=== PATIENT | female | born 1940 | race Caucasian/White ===

== ENCOUNTER → 2016-10-26 | Outpatient (CLI) | payer MEDICARE, BC | END | disposition home or self-care (01) | LOC: GMAB 10:43 | PROVIDERS: ATTEND Family Medicine | DX: E55.9 Vitamin D deficiency, unspecified (principal) ==

== ENCOUNTER → 2017-06-07 | Outpatient (CLI) | payer MEDICARE, BC | LOC: GMAB 10:54 | PROVIDERS: ATTEND Family Medicine | DX: I10 Essential (primary) hypertension (principal) ==

== ENCOUNTER → 2018-04-17 | Outpatient (CLI) | payer MEDICARE, BC ==
--- NOTE | 2018-04-17 16:07 | US ---
US THYROID CLINICAL STATEMENT: NONTOXIC SINGEL THYROID. COMPARISON: None FINDINGS: Size right thyroid lobe: 3.9 x 2.4 x 1.8 cm Size left thyroid lobe: 5.4 x 2.0 x 1.3 cm Size isthmus: 0.2 cm Estimated total number of nodules greater than or equal to 1 cm: 4. Heterogeneous bilateral lobes. Nodule 1: Size: 2.7 x 2.3 x 1.9 cm Location: Right Mid Composition: solid or almost completely solid: 2 points Echogenicity: hypoechoic: 2 points Shape: taller than wide: 3 points Margins: smooth: 0 points Echogenic foci: none: 0 points ACR Total Points: >/= 7; ACR TI-RADS risk category: TR5 - highly suspicious nodule. Nodule 2: Size: 1.1 x 0.9 x 0.6 cm Location: Left Mid Composition: solid or almost completely solid: 2 points Echogenicity: hypoechoic: 2 points Shape: wider than tall: 0 points Margins: smooth: 0 points Echogenic foci: none: 0 points ACR Total Points: 4; ACR TI-RADS risk category: TR4 - moderately suspicious nodule. Nodule 3: Size: 1.0 x 1.0 x 0.9 cm Location: Left Mid Composition: mixed cystic and solid: 1 point Echogenicity: hypoechoic: 2 points Shape: taller than wide: 3 points Margins: smooth: 0 points Echogenic foci: none: 0 points ACR Total Points: 6; ACR TI-RADS risk category: TR4 - moderately suspicious nodule. Nodule 4: Size: 2.2 x 1.6 x 1.2 cm Location: Left Lower Composition: solid or almost completely solid: 2 points Echogenicity: hypoechoic: 2 points Shape: wider than tall: 0 points Margins: smooth: 0 points Echogenic foci: none: 0 points ACR Total Points: 4; ACR TI-RADS risk category: TR4 - moderately suspicious nodule. Additional Nodule: Size: 0.8 x 0.7 x 0.4 cm Location: Right Mid Composition: solid or almost completely solid: 2 points Echogenicity: hypoechoic: 2 points Shape: wider than tall: 0 points Margins: smooth: 0 points Echogenic foci: none: 0 points ACR Total Points: 4; ACR TI-RADS risk category: TR4 - moderately suspicious nodule. Heterogeneous appearance of the soft tissue around the thyroid gland bilaterally. No dominant solid mass or distinct cyst. No parenchymal edema or large calcifications. No overlying skin changes. No abnormal vascularity. IMPRESSION: 1. Nodule 1: ACR TI-RADS 2017 Category TR5. Recommend: Ultrasound-guided fine needle aspiration. Recommendations based upon [employer] Best [employer] recommendations and ACR TI-RADS 2017 guidelines. Please see below*. 2. Nodule 2: ACR TI-RADS 2017 Category TR4. Recommend: Follow-up ultrasound in 1 year. 3. Nodule 3: ACR TI-RADS 2017 Category TR4. Recommend: Follow-up ultrasound in 1 year. 4. Nodule 4: ACR TI-RADS 2017 Category TR4. Recommend: Ultrasound-guided fine needle aspiration Additional nodule right mid lobe requires no further follow-up. Soft tissue around the thyroid gland was unremarkable. *ACR TI-RADS 2017 Recommendations: TR1: No FNA or follow up TR2: No FNA or follow up TR3: FNA if >/= 2.5 cm, follow up if 1.5 - 2.4 cm in 1, 3, and 5 years TR4: FNA if >/= 1.5 cm, follow up if 1.0 - 1.4 cm in 1, 2, 3, and 5 years TR5: FNA if >/= 1.0 cm, follow up if 0.5 - 0.9 cm every year for 5 years ACR TI-RADS recommends that no more than two nodules with the highest ACR TI-RADS total point should be biopsied and no more than four nodules should be followed. Electronically signed by: Scottie Brooks MD 04/17/2018 4:06 PM [facility]
== END ==
LOC: US 14:34
PROVIDERS: ATTEND Family Medicine
DX: E04.1 Nontoxic single thyroid nodule (principal)

== ENCOUNTER → 2018-10-17 | Outpatient (CLI) | payer MEDICARE, BC ==
--- NOTE | 2018-10-17 08:21 | RAD ---
EXAM DESCRIPTION: Shoulder,Right four x-ray views CLINICAL HISTORY: M25.511 COMPARISON: None Available. TECHNIQUE: Four views of the right shoulder. FINDINGS: Severe degenerative spurring of the anteroinferior acetabular margin and superior humeral head. Degenerative narrowing of the AC joint and glenohumeral joint. Marked sclerosis of the glenoid surface as well as the medial humeral head. Large osteophyte at the medial humeral head neck junction. Normal alignment of humeral head and glenoid surface on transaxillary view and transscapular Y view. 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 Electronically signed by: Mikael Greene MD 10/17/2018 8:19 AM CDT
== END ==
LOC: RAD 07:45
PROVIDERS: ATTEND Orthopaedic Surgery
DX: M19.011 Primary osteoarthritis, right shoulder (principal)

== ENCOUNTER → 2018-10-22 | Outpatient (CLI) | payer MEDICARE, BC | LOC: GMAE 10:24 | PROVIDERS: ATTEND Family Medicine | DX: E55.9 Vitamin D deficiency, unspecified (principal) ==

== ENCOUNTER → 2019-10-20 | Outpatient (CLI) | payer MEDICARE, BC | LOC: GMAE 10:28 | PROVIDERS: ATTEND Family Medicine | DX: I10 Essential (primary) hypertension (principal) ==

== ENCOUNTER 2019-11-15 11:33 | Emergency (ER) | payer MEDICARE, BC ==
[2019-11-15] MEDS ORDERED: SODIUM CHLORIDE 0.9% 1000ML 1,000 ML IVS PRN (11:50)
--- NOTE | 2019-11-15 12:58 | ED.PDOC ---
History of Present Illness - General Chief Complaint: General Time Seen by Provider: 11/15/19 11:41 - History of Present Illness Initial Comments: 78 yo F comes in with black tarry stools for one day. states she has had this in the past, but this time it won't stop. Complains of shortness of breath and dizziness. no syncope, no abdominal pain or chest pain. Has never had EGD. Does not drink alcohol. Takes a lot of aspirin for her arthritis. Allergies/Adverse Reactions: Allergies NO KNOWN ALLERGY Allergy (Unverified 11/08/12 18:40) Home Medications: Ambulatory Orders Amitriptyline HCl 10 mg PO HS #0 11/10/12 Fluoxetine HCl [Prozac] 20 mg PO BID #0 11/10/12 LORazepam [Ativan] 0.5 mg PO BID #0 11/10/12 Anastrozole [Arimidex] 1 mg PO BEDTIME 11/15/19 Gabapentin [Neurontin] 300 mg PO HS 11/15/19 Lisinopril 20 mg PO DAILY 11/15/19 Review of Systems - Review of Systems Constitutional: States: malaise, weakness. Denies: chills, diaphoresis, fever EENTM: Denies: blurred vision, tearing Respiratory: States: short of breath. Denies: cough, orthopnea, stridor, wheezing Cardiology: Denies: chest pain, edema, palpitations, syncope Gastrointestinal/Abdominal: States: other - per hpi. Denies: abdominal pain, constipation, diarrhea, nausea, vomiting Genitourinary: Denies: discharge, dysuria, frequency, hematuria Musculoskeletal: Denies: back pain, joint pain, joint swelling, muscle pain, muscle stiffness, neck pain Skin: Denies: change in color, change in hair/nails, dryness, rash Neurological: Denies: anxiety, depressed, headache, numbness, paresthesia, pre- existing deficit, seizure Endocrine: Denies: intolerance to cold, intolerance to heat, increased thirst, increased urine, unexplained weight gain, unexplained weight loss Hematologic/Lymphatic: Denies: anemia, blood clots, easy bleeding Past Medical History (General) - Patient Medical History Hx Seizures: No Hx Stroke: No Hx Dementia: No Hx Asthma: No Hx of COPD: No Hx Cardiac Disorders: No Hx Congestive Heart Failure: No Hx Pacemaker: No Hx Hypertension: No Hx Thyroid Disease: No Hx Diabetes: No Hx Gastroesophageal Reflux: No Hx Renal Disease: No Hx Cancer: Yes Hx of HIV: No Hx Hepatitis C: No Hx MRSA: No - Social History Hx Tobacco Use: No Hx Alcohol Use: No Hx Substance Use: No Hx Substance Use Treatment: No Hx Depression: No Hx Physical Abuse: No Hx Emotional Abuse: No Family Medical History - Family History Mother Family History: No Known Physical Exam - Physical Exam General Appearance: Alert, Comfortable, No apparent distress Ears, Nose, Throat: hearing grossly normal, normal ENT inspection, normal pharynx Neck: non-tender, full range of motion, supple, normal inspection Respiratory: chest non-tender, lungs clear, normal breath sounds, no respiratory distress, no accessory muscle use Cardiovascular/Chest: normal peripheral pulses, regular rate, rhythm, no edema, no gallop, no JVD, no murmur Peripheral Pulses: radial,right: 2+, radial,left: 2+, dorsalis pedis,right: 2+, dorsalis pedis,left: 2+ Gastrointestinal/Abdominal: normal bowel sounds, non tender, soft, no organomegaly, no pulsatile mass Rectal Exam: normal rectal tone, black stool Back Exam: normal inspection, no CVA tenderness, no vertebral tenderness Extremity: normal range of motion, non-tender, normal inspection, no pedal edema, no calf tenderness Neurologic: bioprocess engineer II-XII nml as tested, no motor/sensory deficits, alert, normal mood/affect, oriented x 3 Skin Exam: warm/dry, pallor Lymphatic: no adenopathy Progress - Progress Progress: 11/15/19 patient given 1 L NS bolus, melena like stool noted at rectal volt. HR 113. EKG shows NSR HR 94,improved with fluids. Non specific st changes. John-bl [place] bleeding score 10. Will call hospitalist to discuss admission. 11/15/19 11:50 Sodium Chloride 0.9% 1000ML [Ns 1000 ml] 1,000 ml IVS STAT 11/15/19 12:22 TYPE AND SCREEN Stat 11/15/19 12:30 EKG STAT Laboratory Results WBC 7.1 K/mm3 (4.8-10.8) 11/15/19 12:22 RBC 3.00 M/mm3 (4.20-5.40) L 11/15/19 12:22 Hgb 9.3 gm/dL (12.0-16.0) L 11/15/19 12:22 Hct 27.7 % (36.0-47.0) L 11/15/19 12: MCV 92.4 fl (81.0-99.0) 11/15/19 12: MCH 31.1 pg (27.0-31.0) H 11/15/19 12: MCHC 33.7 g/dL (33.0-37.0) 11/15/19 12: RDW 13.2 % (11.5-14.5) 11/15/19 12: Plt Count 256 K/mm3 (130-400) 11/15/19 12: MPV 7.7 fl (7.40-10.4) 11/15/19 12: Absolute Neuts (auto) 5.30 K/uL (1.8-6.8) 11/15/19 12: Absolute Lymphs (auto) 1.20 K/uL (1.0-3.4) 11/15/19 12: Absolute Monos (auto) 0.50 K/uL (0.2-0.8) 11/15/19 12: Absolute Eos (auto) 0.10 K/uL (0.0-0.4) 11/15/19 12: Absolute Basos (auto) 0.10 K/uL (0.0-0.1) 11/15/19 12:22 Neutrophils % 74.8 % (42.0-78.0) 11/15/19 12: Lymphocytes % 16.3 % (20.0-50.0) L 11/15/19 12:22 Monocytes % 6.5 % (2.0-9.0) 11/15/19 12: Eosinophils % 1.1 % (1.0-5.0) 11/15/19 12: Basophils % 1.3 % (0.0-2.0) 11/15/19 12: PT 10.2 SECONDS (9.0-10.9) 11/15/19 12:22 INR 1.03 (0.9-1.15) 11/15/19 12:22 PTT (SP) 19.3 SECONDS (21.8-31.6) L 11/15/19 12:22 Sodium 138 mmol/L (135-145) 11/15/19 12:22 Potassium 4.0 mmol/L (3.6-5.0) 11/15/19 12:22 Chloride 108 mmol/L (101-111) 11/15/19 12:22 Carbon Dioxide 22 mmol/L (21-31) 11/15/19 12:22 Anion Gap 12.0 (12-18) 11/15/19 12:22 BUN 21 mg/dL (7-18) H 11/15/19 12:22 Creatinine 0.83 mg/dL (0.6-1.3) 11/15/19 12:22 BUN/Creatinine Ratio 25.3 (10-20) H 11/15/19 12:22 Random Glucose 116 mg/dL (70-105) H 11/15/19 12:22 Serum Osmolality 279.6 mOsm/L (275-295) 11/15/19 12:22 Calcium 9.0 mg/dL (8.4-10.2) 11/15/19 12:22 Total Bilirubin 1.2 mg/dL (0.2-1.0) H 11/15/19 12:22 AST 21 IU/L (10-42) 11/15/19 12:22 ALT 10 IU/L (10-60) 11/15/19 12:22 Alkaline Phosphatase 63 IU/L (42-121) 11/15/19 12:22 Troponin I < 0.02 ng/mL (0.01-0.05) 11/15/19 12:22 Serum Total Protein 6.2 gm/dL (6.4-8.2) L 11/15/19 12:22 Albumin 3.4 g/dl (3.2-5.5) 11/15/19 12:22 Globulin 2.8 gm/dL (2.3-3.5) 11/15/19 12:22 Albumin/Globulin Ratio 1.2 (1.1-1.9) 11/15/19 12:22 Lipase 38 U/L (22-51) 11/15/19 12:22 Stool Occult Blood Positive (NEGATIVE) H 11/15/19 12:22 Patient ABO/Rh B POSITIVE 11/15/19 12:22 11/15/19 13:23 discussed with our hospitalist, we do not have GI. [facility] has no beds. Dr. Rasheed from [facility] accept patient for transfer. - Results/Orders Results/Orders: The data reviewed when caring for this patient included: nurse notes etc. The history and assessments from nurses notes were reviewed and considered, and the patient's home medication list was also reviewed and considered. My assessment and the results of testing completed here in the ED were discussed with the patient/family. All questions were answered, and they express understanding of my assessment and the plan. Patient was transferred in stable condition. Departure - Departure Clinical Impression: Melena Disposition: Transfer to Hospital Condition: Fair Departure Forms: ED Discharge - Pt. Copy, Patient Portal Self Enrollment Referrals: JAMIE [facility] MD [Primary Care Provider] - 1-2 Days Home Medications: Ambulatory Orders Amitriptyline HCl 10 mg PO HS #0 11/10/12 Fluoxetine HCl [Prozac] 20 mg PO BID #0 11/10/12 LORazepam [Ativan] 0.5 mg PO BID #0 11/10/12 Anastrozole [Arimidex] 1 mg PO BEDTIME 11/15/19 Gabapentin [Neurontin] 300 mg PO HS 11/15/19 Lisinopril 20 mg PO DAILY 11/15/19 Transfer to Outside Facility - Transfer Information Decision to Transfer Date: 11/15/19 Decision to Transfer Time: 13:20 Reason for Transfer: required specialist not available - [facility]
[2019-11-15] MEDS ORDERED: PANTOPRAZOLE SODIUM IV 40 MG VIAL IV ONE (15:28)
[2019-11-15 17:05] VITALS: BP 148/84; O2SAT 97
[2019-11-15 18:50] VITALS: TEMP 98
== END 2019-11-15 16:35 | disposition short-term general hospital (02) ==
LOC: ER 11:33
DX: K92.1 Melena (principal); R06.02 Shortness of breath; R42 Dizziness and giddiness; Z79.82 Long term (current) use of aspirin
CPT/HCPCS: 36415; 80053; 82270; 83690; 84484; 85025; 85610; 85730; 86850; 86900; 86901; 93005; J7030